=== PATIENT | female | born 1985 | race Caucasian/White ===

== ENCOUNTER 2021-05-29 08:36 | Day surgery (SDC) | payer OTHER ==
[2021-05-29] MEDS ORDERED: Decadron 4 MG INJ IV ONE (08:37)
[2021-05-29] MEDS ORDERED: Xylocaine 1% Vial 30 ML PF IJ ONE (08:37)
[2021-05-29] MEDS ORDERED: Sodium Chloride 0.9% 10 ML FLUSH Syringe IJ ONE (08:37)
[2021-05-29] MEDS ORDERED: Lactated Ringers 1,000 ML IV ONE (10:00)
[2021-05-29] MEDS ORDERED: MORPHINE SULFATE 2 MG INJ ONE (10:54)
--- NOTE | 2021-05-29 12:29 | XRAY ---
Indication: Cervical OLIVIA. Intraoperative fluoroscopy provided for 32 seconds. 2 digital spot image submitted for interpretation demonstrates posterior needle tip projecting midline posterior to cervical thoracic junction. Small amount of contrast injected for needle tip placement. Correlate with intraoperative findings/report.
--- NOTE | 2021-05-29 12:33 | XRAY ---
32 seconds fluoroscopy time in surgery for cervical OLIVIA.
== END 2021-05-29 11:05 | disposition home or self-care (01) ==
LOC: SDC-PAIN 08:36
PROVIDERS: ATTEND Psychiatry & Neurology Pain Medicine
DX: M54.12 Radiculopathy, cervical region (principal); Z79.899 Other long term (current) drug therapy
CPT/HCPCS: 62321; 72040; 77003; 84703; J1100; J2001; J2270; Q9966